=== PATIENT | female | born 1955 | race Caucasian/White ===

== ENCOUNTER 2019-05-30 09:02 | Outpatient (CLI) | payer OTHER ==
[~2019-05-30 09:02] MED LIST: HYZAAR 100-251 UDTAB PO; LEVAQUIN750 MG PO; PERCOCET 5-3251 EACH PO; ZITHROMAX500 MG PO
== END 2019-05-30 10:33 | disposition home or self-care (01) ==
LOC: SONOGRAMA 09:02
DX: R94.5 Abnormal results of liver function studies (principal)

== ENCOUNTER 2019-10-06 08:53 | Outpatient (CLI) | payer OTHER | END 2019-10-06 09:00 | disposition home or self-care (01) | LOC: MAMO-SONO 08:53 | PROVIDERS: ATTEND Internal Medicine Rheumatology | DX: Z12.31 Encounter for screening mammogram for malignant neoplasm of breast (principal); N60.11 Diffuse cystic mastopathy of right breast; N60.12 Diffuse cystic mastopathy of left breast; R10.84 Generalized abdominal pain ==

== ENCOUNTER 2020-09-15 10:10 | Outpatient (CLI) | payer OTHER | END 2020-09-15 15:04 | disposition home or self-care (01) | LOC: RAD 10:10 → MAMO-SONO 14:30 → RAD 15:04 | PROVIDERS: ATTEND Specialist | DX: M25.512 Pain in left shoulder (principal) ==

== ENCOUNTER 2021-05-31 08:00 | Outpatient (CLI) | payer OTHER | END 2021-05-31 08:30 | disposition home or self-care (01) | LOC: PPH VACUNA 08:00 | PROVIDERS: ATTEND Emergency Medicine Pediatric Emergency Medicine | DX: Z23 Encounter for immunization (principal) ==

== ENCOUNTER 2021-08-31 09:00 | Outpatient (CLI) | payer OTHER | END 2021-08-31 09:03 | disposition home or self-care (01) | LOC: TOM 09:00 | PROVIDERS: ATTEND Internal Medicine Gastroenterology | DX: R10.9 Unspecified abdominal pain (principal); E78.5 Hyperlipidemia, unspecified; E03.9 Hypothyroidism, unspecified ==

== ENCOUNTER 2021-09-05 15:28 | Outpatient (CLI) | payer OTHER | END 2021-09-05 15:31 | disposition home or self-care (01) | LOC: RAD 15:28 | PROVIDERS: ATTEND Internal Medicine Rheumatology | DX: M15.8 Other polyosteoarthritis (principal); M79.672 Pain in left foot ==

== ENCOUNTER 2021-09-14 07:12 | Outpatient (CLI) | payer OTHER | END 2021-09-14 07:19 | disposition home or self-care (01) | LOC: NUCLEAR 07:12 | PROVIDERS: ATTEND Internal Medicine Gastroenterology | DX: K31.84 Gastroparesis (principal); Z88.8 Allergy status to other drugs, medicaments and biological substances; Z88.6 Allergy status to analgesic agent; Z88.5 Allergy status to narcotic agent | CPT/HCPCS: 78264; A9541 ==

== ENCOUNTER 2022-03-13 | Outpatient (CLI) | payer OTHER | END 2022-03-13 00:15 | disposition home or self-care (01) | LOC: PPH VACUNA | PROVIDERS: ATTEND Emergency Medicine Pediatric Emergency Medicine | DX: Z23 Encounter for immunization (principal) ==

== ENCOUNTER → 2022-04-19 | Outpatient (CLI) | payer OTHER | END | disposition home or self-care (01) | LOC: RAD 13:11 | PROVIDERS: ATTEND Specialist | DX: R05.3 Chronic cough (principal) ==

== ENCOUNTER → 2022-05-08 | Outpatient (CLI) | payer OTHER | END | disposition home or self-care (01) | LOC: RAD 11:01 | PROVIDERS: ATTEND General Practice | DX: M54.9 Dorsalgia, unspecified (principal) ==

== ENCOUNTER 2022-06-26 13:55 | Outpatient (CLI) | payer OTHER | END 2022-06-26 14:13 | disposition home or self-care (01) | LOC: SONOGRAMA 13:55 | DX: R74.01 Elevation of levels of liver transaminase levels (principal); E78.00 Pure hypercholesterolemia, unspecified; R06.02 Shortness of breath; I10 Essential (primary) hypertension ==

== ENCOUNTER 2023-02-16 08:14 | Outpatient (CLI) | payer OTHER | END 2023-02-16 08:34 | disposition home or self-care (01) | LOC: RAD 08:14 | PROVIDERS: ATTEND Internal Medicine | DX: Z98.41 Cataract extraction status, right eye (principal) ==

== ENCOUNTER 2023-05-10 13:49 | Outpatient (CLI) | payer OTHER | END 2023-05-10 16:14 | disposition home or self-care (01) | LOC: RAD 13:49 | PROVIDERS: ATTEND Specialist | DX: M79.671 Pain in right foot (principal) ==

== ENCOUNTER 2024-08-12 05:50 | Day surgery (SDC) | payer OTHER ==
[2024-08-05 09:30] LABS: BASO % 0.7 % (0.1-1.2); EOS # 0.17 (0.04-0.54); EOS % 3.0 % (0.7-7.0); LYMPH # 1.97 (1.18-3.74); LYMPH % 34.7 % (19.3-53.1); MEAN PLATELET VOLUME 9.30 fl (9.4-12.4); MONO # 0.52 (0.24-0.82); MONO % 9.2 % (4.7-12.5); NEUT # 2.97 (1.56-6.13); NEUT % 52.2 % (34.0-71.1); RED CELL DISTRIBUTION WIDTH 12.7 % (11.6-14.4)
[2024-08-05 09:33] VITALS: BP 140/70
[2024-08-05 10:11] LABS: URINE APPEARANCE Clear; URINE BILIRRUBIN Negative (NEGATIVE); URINE BLOOD Negative; URINE COLOR Yellow; URINE GLUCOSE Negative (NEGATIVE); URINE KETONE Negative (NEGATIVE); URINE LEUKOCYTE Trace; URINE NITRATE Negative; URINE PROTEIN Trace (NEGATIVE); URINE UROBILINOGEN 0.2 E.U./dl
[2024-08-05 10:14] LABS: URINE BACTERIA 61.1 uL (0.0-1933); URINE CAST 2.34 uL (0.0-1.40); URINE EPITHELIAL CELLS 16.1 uL (0.0-38.8); URINE RBC 2.3 uL (0.0-20.8); URINE WBC 55.2 uL (0.0-23.2)
[2024-08-05 10:36] LABS: INR < 0.93
[2024-08-05 11:16] LABS: ALT/SGPT 58.0 U/L (12-78); AST/SGOT 36.0 U/L (15-37); BILIRUBIN TOTAL 0.64 mg/dL (0.3-1.2); BUN CREA RATIO 19.0 (7.0-25.0); CREATININE SERUM 0.79 mg/dL (0.55-1.02); GFR 71.95; GLOBULINA 3.1 G/DL (2.4-3.5); GLUCOSE FASTING 70.0 mg/dL (65-100); OSMOLALITY SERUM 275.0 MOSM/KG (275-295)
[2024-08-05 11:47] LABS: TYPE CELLS RENAL TUBULAR
[~2024-08-12] VITALS: Ht 170.2 cm; Wt 59.4 kg
[~2024-08-12 05:50] MED LIST changes: +CLINDAMYCIN PHOSPHATE 150 MG/ML (900mg) IV SCH; +NORVASC2.5 M1 PO; +ROSUVASTATIN CA40 MG
[2024-08-12] MEDS ORDERED: MORPHINE SULFATE 4 MG/ML VIAL IV ONE ×2 (11:20→11:50)
== END 2024-08-12 13:00 | disposition home or self-care (01) ==
LOC: CIR.AMB 05:50
PROVIDERS: ATTEND Orthopaedic Surgery Hand Surgery
DX: M72.0 Palmar fascial fibromatosis [Dupuytren] (principal); Z88.6 Allergy status to analgesic agent; Z91.013 Allergy to seafood

== ENCOUNTER 2024-12-04 09:44 | Outpatient (CLI) | payer OTHER ==
[~2024-12-04 09:44] MED LIST changes: -CLINDAMYCIN PHOSPHATE 150 MG/ML (900mg) IV SCH
== END 2024-12-04 09:46 | disposition home or self-care (01) ==
LOC: MAMO-SONO 09:44
PROVIDERS: ATTEND Surgery
DX: N60.11 Diffuse cystic mastopathy of right breast (principal); N60.12 Diffuse cystic mastopathy of left breast